=== PATIENT | female | born 1970 | race Caucasian/White ===

== ENCOUNTER 2019-08-03 16:34 | Emergency (ER) | payer MEDICARE, MEDICAID, SELFPAY ==
[2019-08-03 16:44] VITALS: BP 113/73; PULSE 86; RESP 16; TEMP 36.6; O2SAT 95; BMI 29.6
--- NOTE | 2019-08-03 17:08 | ED.SKABFB ---
HPI - Skin/Abscess/Foreign Bdy General Chief complaint: Skin/Abscess/Foreign Body Stated complaint: FACIAL SWELLING, RAPID WEIGHT GAIN Time Seen by Provider: 08/03/19 16:53 Source: patient Mode of arrival: Ambulatory Limitations: no limitations History of Present Illness HPI narrative: Patient is a 48-year-old female who presents with possible allergic or drug reaction. She states that she was in care home got released in transferred to [facility]. She was instantly put on a multitude of medications this all started 4 months ago. The 1st month she started taking all these medications she had rapid weight gain. She says she is typically 115 lb she is now 158. She has had no weight gain recently a she just started reading all the side effects of the medication and is said facial swelling and rapid weight gain she should seek medical attention. However none of the weight gain or facial swelling is new. She has no difficulty breathing she has no trouble eating she does not feel like she is short of breath. She has no hives she has no other complaints. She is trying to get established with a PCP locally but has not yet found 1. Related Data Allergies Allergy/AdvReac Type Severity Reaction Status Date / Time citalopram [CITALOPRAM] Allergy Unknown Verified 08/03/19 16:44 Sulfa (Sulfonamide Allergy Unknown Verified 08/03/19 16:44 Antibiotics) [SULFA (SULFONAMIDE ANTIBIOTICS)] Review of Systems Review of Systems ROS Unobtainable: All systems reviewed & are unremarkable except as noted in HPI and below Constitutional Constitutional: Reports as per HPI, Denies chills, Denies fever(s), Denies lethargy, Denies weakness and Reports weight gain Eyes Eyes: Denies change in vision, Denies eye discharge, Denies irritation and Denies loss of vision ENT Ears, Nose, Mouth, and Throat: Denies change in voice, Denies neck pain and Denies sore throat Cardiovascular Cardiovascular: Denies chest pain, Denies irregular heart rhythm, Denies lightheadedness, Denies palpitations, Denies dyspnea, Denies dyspnea on exertion and Denies orthopnea Respiratory Respiratory: Denies cough, Denies dyspnea, Denies dyspnea on exertion and Denies wheezing Gastrointestinal Gastrointestinal: Denies abdominal pain, Denies change in bowel habits, Denies diarrhea, Denies nausea and Denies vomiting Musculoskeletal Musculoskeletal: Denies neck pain Integumentary/Breasts Skin/Breast: Denies pruritus, Denies erythema, Denies rash and Denies wounds Neurologic Neurologic: Denies loss of vision and Denies weakness Endocrine Endocrine: Denies palpitations Allergic/Immunologic Allergic/Immunologic: Denies wheezing Patient History Medical History Depression (Acute) Hyperthyroidism (Acute) Hypothyroidism (Acute) Substance Use Type: does not use Exam Initial Vital Signs Initial Vital Signs: Vital Signs Temperature 97.8 F 08/03/19 16:44 Pulse Rate 86 08/03/19 16:44 Respiratory Rate 16 08/03/19 16:44 Blood Pressure 113/73 08/03/19 16:44 Pulse Oximetry 95 08/03/19 16:44 GENERAL: Well-appearing, well-nourished and in no acute distress. HEENT: Head atraumatic,EOMI, pupils reactive, face symmetric, moist mucous membranes, no significant facial swelling, airway patent no stridor CARDIOVASCULAR: Regular rate and rhythm without murmurs, rubs or gallops. RESPIRATORY: Breath sounds equal bilaterally, no wheezes rales or rhonchi. ABDOMEN: Soft, nontender. Normoactive bowel sounds all 4 quadrants. No guarding or rebound. EXTREMITIES: Normal range of motion, no clubbing or edema. Neurovascularly intact NEUROLOGICAL: Alert and oriented x4.Normal gait and speech. SKIN: Warm, dry, no laceration, no petechiae, no rashes or lesions. Course Vital Signs Vital signs: Vital Signs - 8 hr 08/03/19 16:44 Temperature 97.8 F Pulse Rate 86 Respiratory Rate 16 Blood Pressure 113/73 Pulse Oximetry 95 MDM - Skin/Abscess/Foreign Bdy MDM Narrative Medical decision making narrative: Patient has no new symptoms today. She says her weight has remained stable for the last 3 months. She initially had large amount of weight gain when she 1st started all the medication. He is not sure what she is supposed to be taking what she is not. She is given number to call to set up her PCP. At this time no airway issues. No sign of anaphylaxis. Discharge Plan Departure Patient Disposition: Home Clinical Impression: Adverse drug reaction Qualifiers: Encounter type: initial encounter Qualified Code(s): T50.905A - Adverse effect of unspecified drugs, medicaments and biological substances, initial encounter Discharge Date/Time: 08/03/19 17:32 Instructions: DI for Adverse Drug Reaction -- Other Activity Restrictions/Additional Instructions: *You have been diagnosed with drug reaction *What to do: At this time waking and facial swelling is likely from the multitude of medications you are taking. At this time recommend that he follow up with a PCP in regards to what medications you need and do not need. I do not recommend that you stop the med immediately some of them need to be tapered off slowly. At this time it does not appear that you have an anaphylactic reaction to the medication *Continue to take medications as directed *Follow up with your primary care provider in 2-3 days *Return to ER if you should have rapid swelling of face or neck, difficulty breathing, difficulty swallowing or any new, worsening or concerning symptoms Referrals: [facility] [Outside] Bita Valdovinos ARNP [Primary Care Provider] -
--- NOTE | 2019-08-03 17:08 | PC.NURSE ---
pt concern for facial swelling and wt gain 45 pounds in 4 weeks, concern for side effects, denies fever, denies shortness of breath, denies vasquez, denies chest pain. reports, was just dc from [facility] in [place] 2 days ago, she has no doctor.
== END 2019-08-03 17:32 | disposition home or self-care (01) ==
LOC: ED 17:15
PROVIDERS: Emergency Provider Emergency Medicine; PCP Internal Medicine
DX: T78.40XA Allergy, unspecified, initial encounter (principal); T50.905A Adverse effect of unspecified drugs, medicaments and biological substances, initial encounter
CPT/HCPCS: 99282